=== PATIENT | female | born 1940 | race Two or more races ===

== ENCOUNTER 2022-11-05 10:38 | Inpatient (IN) | payer OTHER, MEDICAID ==
[~2022-11-05] VITALS: Ht 162.6 cm; Wt 57.9 kg
[2022-11-05 11:07] LABS: Basophils # (auto) 0.1 10 ^3/uL (0-0.2); Basophils % (auto) 0.7 % (0.0-2.0); Eosinophils # (auto) 0.1 10 ^3/uL (0-0.8); Hematocrit 39.4 % (36.0-46.0); Hemoglobin 13.8 g/dL (12.2-16.2); Lymphocytes # (auto) 1.8 10 ^3/uL (0.4-5.4); Lymphocytes % (auto) 24.4 % (10.0-50.0); Mean Corpuscular Hgb Conc. 34.9 g/dL (32.0-36.0); Monocytes # (auto) 0.3 10 ^3/uL (0-1.3); Monocytes % (auto) 3.4 % (0.0-12.0); Neutrophils # (auto) 5.3 10 ^3/uL (1.6-8.6); Neutrophils % (auto) 70.5 % (37.0-80.0); Nucleated Red Blood Cells % 0.7 %; Red Blood Cells 4.58 10^6/uL (4.0-5.20); Red Cell Distribution Width 14.5 % (11.8-14.3); White Blood Cell 7.5 10^3/uL (4.4-10.8)
[2022-11-05 11:24] LABS: Albumin 3.2 g/dL (3.4-5.0); Calcium 8.8 mg/dL (8.5-10.1)
[2022-11-05 11:28] LABS: Bilirubin, Total 0.7 mg/dL (0.2-1.0); Total Protein 6.9 g/dL (6.4-8.2)
[2022-11-05] MEDS ORDERED: IOHEXOL 300 MG/ML 100ML BOTTLE IJ ONE (11:51)
[2022-11-05 12:02] LABS: INR 0.97 (0.9-1.15)
[2022-11-05 13:54] LABS: Urine Bacteria MANY /hpf (None Seen); Urine Blood 3+ /uL (Negative); Urine Specific Gravity 1.025 (1.001-1.035); Urine WBC 369 /hpf (0 - 5); Urine WBC Clumps PRESENT /hpf (None Seen)
[2022-11-05] MEDS: cefTRIAXone 1GM/50ML D5W 50 ML IV ONE ×2 (14:44→14:46)
[2022-11-05] MEDS ORDERED: DEXTROSE (50%) 50ML SYRG IV PRN (22:15)
[2022-11-05] MEDS ORDERED: DOCUSATE SOD 100 MG CAP PO PRN (22:15)
[2022-11-05] MEDS ORDERED: ONDANSETRON HCL 4 MG/2 ML VIAL IV PRN (22:15)
[2022-11-05] MEDS ORDERED: HYDROcodone-ACET 5/325MG TAB PO PRN (22:15)
[2022-11-05] MEDS ORDERED: ACETAMINOPHEN 325 MG TAB PO PRN (22:15)
[2022-11-05] MEDS: SODIUM CHLORIDE 0.9% 1,000 ML IV SCH (22:30)
[2022-11-05] MEDS ORDERED: MORPHINE SULFATE INJ 2 MG/ml SYRG IV PRN (23:15)
[2022-11-05] MEDS ORDERED: NITROGLYCERIN 0.4 MG SL TAB SL PRN (23:15)
[2022-11-06] MEDS: hydrALAZINE HCL 20 MG/ML VL IV PRN (01:16)
[2022-11-06 02:19] VITALS: BP 126/59
[2022-11-06] MEDS ORDERED: MELATONIN 5 MG TAB PO ONE (04:15)
[2022-11-06] MEDS: PANTOPRAZOLE 40 MG/10 ML VIAL INJ IV SCH ×2 (04:23→22:18)
[2022-11-06 05:00] VITALS: BP 127/65
[2022-11-06] MEDS: ACCU-CHEK COMFORT CURVE STRIP VI SCH ×4 (06:01→22:35)
[2022-11-06] MEDS: InsuLIN REG 1unit/0.01ml Soln (100units/ml) SC SCH ×4 (06:04→22:34)
[2022-11-06 06:41] LABS: Basophils # (auto) 0.1 10 ^3/uL (0-0.2); Basophils % (auto) 0.8 % (0.0-2.0); Eosinophils # (auto) 0.1 10 ^3/uL (0-0.8); Hematocrit 37.9 % (36.0-46.0); Hemoglobin 13.2 g/dL (12.2-16.2); Lymphocytes # (auto) 1.9 10 ^3/uL (0.4-5.4); Lymphocytes % (auto) 22.2 % (10.0-50.0); Mean Corpuscular Hemoglobin 30.3 pg (28.0-32.0); Mean Corpuscular Hgb Conc. 34.9 g/dL (32.0-36.0); Mean Corpuscular Volume 86.6 fL (80.0-100.0); Monocytes # (auto) 0.4 10 ^3/uL (0-1.3); Monocytes % (auto) 4.5 % (0.0-12.0); Neutrophils % (auto) 71.5 % (37.0-80.0); Nucleated Red Blood Cells % 0.1 %; Red Blood Cells 4.38 10^6/uL (4.0-5.20); Red Cell Distribution Width 14.6 % (11.8-14.3); White Blood Cell 8.4 10^3/uL (4.4-10.8)
[2022-11-06 07:13] LABS: Calcium 8.5 mg/dL (8.5-10.1); Potassium 3.9 mmol/L (3.5-5.1)
[2022-11-06 07:19] LABS: Albumin 3.2 g/dL (3.4-5.0); BUN/Creatinine Ratio 30.4 (10.0-20.0); Bilirubin, Total 0.8 mg/dL (0.2-1.0); Total Protein 6.9 g/dL (6.4-8.2)
[2022-11-06] MEDS: cefTRIAXone 1GM/50ML D5W 50 ML IV SCH (08:51)
[2022-11-06 09:00] VITALS: BP 122/45
[2022-11-06] MEDS ORDERED: FAMOTIDINE (10MG/ML) 2ML VL IV SCH (10:00)
[2022-11-06 13:00] VITALS: BP 160/62
[2022-11-06] MEDS: SODIUM CHLORIDE 0.9% 1,000 ML IV SCH (14:24)
[2022-11-06 17:00] VITALS: BP 147/65
[2022-11-06] MEDS ORDERED: TEMAZEPAM 15 MG CAP PO ONE (20:45)
[2022-11-06 22:35] VITALS: BP 136/61
[2022-11-06] MEDS ORDERED: CLON0.5T3 PO (22:43)
[2022-11-06] MEDS ORDERED: SODI650T PO (22:43)
[2022-11-07 05:00] VITALS: BP 128/71
[2022-11-07] MEDS: ACCU-CHEK COMFORT CURVE STRIP VI SCH ×4 (06:10→21:54)
[2022-11-07] MEDS: InsuLIN REG 1unit/0.01ml Soln (100units/ml) SC SCH ×4 (06:13→21:54)
[2022-11-07] MEDS: SODIUM CHLORIDE 0.9% 1,000 ML IV SCH (07:35)
[2022-11-07] MEDS: PANTOPRAZOLE 40 MG/10 ML VIAL INJ IV SCH (08:08)
[2022-11-07] MEDS: cefTRIAXone 1GM/50ML D5W 50 ML IV SCH (08:08)
[2022-11-07 08:13] VITALS: BP 118/58
[2022-11-07 17:00] VITALS: BP 138/54
[2022-11-07] MEDS: hydrALAZINE HCL 20 MG/ML VL IV PRN (17:51)
[2022-11-07] MEDS: INSULIN LANTUS (GLARGINE) 1 /0.01ml (100units/ml) SC SCH (21:54)
[2022-11-07 22:00] VITALS: BP 182/73
[2022-11-08 05:00] VITALS: BP 106/76
[2022-11-08] MEDS: SODIUM CHLORIDE 0.9% 1,000 ML IV SCH ×2 (06:02→10:15)
[2022-11-08] MEDS: ACCU-CHEK COMFORT CURVE STRIP VI SCH ×4 (06:03→21:27)
[2022-11-08] MEDS: INSULIN LANTUS (GLARGINE) 1 /0.01ml (100units/ml) SC SCH ×2 (06:05→22:09)
[2022-11-08] MEDS: InsuLIN REG 1unit/0.01ml Soln (100units/ml) SC SCH ×4 (06:05→22:09)
[2022-11-08 08:54] VITALS: BP 173/62
[2022-11-08] MEDS: cefTRIAXone 1GM/50ML D5W 50 ML IV SCH (10:07)
[2022-11-08] MEDS: hydrALAZINE HCL 20 MG/ML VL IV PRN (10:13)
[2022-11-08] MEDS ORDERED: clonazePAM 0.5 MG TAB PO PRN (12:00)
[2022-11-08 12:36] VITALS: BP 149/55
[2022-11-08 17:27] VITALS: BP 148/85
[2022-11-08] MEDS: Juven Orange Powder PACKET 27.5gm PO SCH (18:21)
[2022-11-08 22:00] VITALS: BP 145/119
[2022-11-09 05:00] VITALS: BP 143/53
[2022-11-09] MEDS: InsuLIN REG 1unit/0.01ml Soln (100units/ml) SC SCH ×3 (07:00→18:18)
[2022-11-09] MEDS: ACCU-CHEK COMFORT CURVE STRIP VI SCH ×3 (07:00→16:22)
[2022-11-09] MEDS: INSULIN LANTUS (GLARGINE) 1 /0.01ml (100units/ml) SC SCH (07:04)
[2022-11-09 09:00] VITALS: BP 112/54
[2022-11-09] MEDS: SODIUM CHLORIDE 0.9% 1,000 ML IV SCH (09:35)
[2022-11-09] MEDS: cefTRIAXone 1GM/50ML D5W 50 ML IV SCH (09:47)
[2022-11-09] MEDS: Juven Orange Powder PACKET 27.5gm PO SCH ×2 (09:48→18:48)
[2022-11-09] MEDS ORDERED: CEPH-510 PO (10:26)
[2022-11-09 13:00] VITALS: BP 116/74
[2022-11-09 16:41] VITALS: BP 123/53
== END 2022-11-09 18:53 | disposition home or self-care (01) | DRG 760 ==
LOC: ER 10:38 → TELE 23:11 → TELE-WESTW 11-06 02:21
PROVIDERS: ADMIT Nurse Practitioner Family; ATTEND Internal Medicine
DX: N89.9 Noninflammatory disorder of vagina, unspecified (principal); N39.0 Urinary tract infection, site not specified; N93.9 Abnormal uterine and vaginal bleeding, unspecified; I16.0 Hypertensive urgency; E11.65 Type 2 diabetes mellitus with hyperglycemia; Z20.822 Contact with and (suspected) exposure to COVID-19; G30.9 Alzheimer's disease, unspecified; F02.80 Dementia in other diseases classified elsewhere, unspecified severity, without behavioral disturbance, psychotic disturbance, mood disturbance, and anxiety; E11.22 Type 2 diabetes mellitus with diabetic chronic kidney disease; N18.9 Chronic kidney disease, unspecified; Z90.710 Acquired absence of both cervix and uterus
CPT/HCPCS: 36415; 74177; 76856; 80053; 81001; 82962; 84484; 85025; 85610; 86850; 86900; 86901; 87086; 87426; 93005; 96365; 96375; C9113; G0378; J0696; J1815; J2405

== ENCOUNTER 2023-01-14 11:54 | Inpatient (IN) | payer OTHER, MEDICAID ==
[~2023-01-14] VITALS: Ht 162.6 cm; Wt 62.0 kg
[~2023-01-14 11:54] MED LIST: CEPH-510 PO; CLON0.5T3 PO; SODI650T PO
[2023-01-14] MEDS ORDERED: ACETAMINOPHEN 500 MG TAB PO ONE (12:15)
[2023-01-14] MEDS ORDERED: AZITHROMYCIN 500MG/ 250ML 250 ML IV ONE (12:15)
[2023-01-14] MEDS ORDERED: cefTRIAXone 1GM/50ML D5W 50 ML IV ONE (12:15)
[2023-01-14 12:43] LABS: Basophils # (auto) 0.2 10 ^3/uL (0-0.2); Eosinophils # (auto) 0 10 ^3/uL (0-0.8); Hematocrit 39.7 % (36.0-46.0); Hemoglobin 13.3 g/dL (12.2-16.2); Lymphocytes # (auto) 0.7 10 ^3/uL (0.4-5.4); Lymphocytes % (auto) 4.1 % (10.0-50.0); Mean Corpuscular Hemoglobin 28.7 pg (28.0-32.0); Mean Corpuscular Hgb Conc. 33.5 g/dL (32.0-36.0); Mean Corpuscular Volume 85.9 fL (80.0-100.0); Monocytes # (auto) 0.3 10 ^3/uL (0-1.3); Monocytes % (auto) 1.9 % (0.0-12.0); Neutrophils # (auto) 15.3 10 ^3/uL (1.6-8.6); Red Blood Cells 4.63 10^6/uL (4.0-5.20); Red Cell Distribution Width 14.7 % (11.8-14.3); White Blood Cell 16.4 10^3/uL (4.4-10.8)
[2023-01-14 13:00] LABS: Albumin 3.1 g/dL (3.4-5.0); Calcium 8.5 mg/dL (8.5-10.1); Magnesium 2.1 mg/dL (1.6-2.6); Potassium 4.7 mmol/L (3.5-5.1)
[2023-01-14 13:03] LABS: INR 1.05 (0.9-1.15); Lactic Acid w/Reflex 6.4 mmol/L (0.4-2.0); Partial Thromboplastin Time 27.7 SEC (24.5-34.5)
[2023-01-14 13:04] LABS: BUN/Creatinine Ratio 20.7 (10.0-20.0); Bilirubin, Total 1.4 mg/dL (0.2-1.0); Total Protein 7.1 g/dL (6.4-8.2)
[2023-01-14] MEDS ORDERED: IPRATROPIUM BROM 0.5 MG/2.5ML INH SOL NEB PRN (14:15)
[2023-01-14] MEDS ORDERED: NITROGLYCERIN 0.4 MG SL TAB SL PRN (14:15)
[2023-01-14] MEDS ORDERED: DEXTROSE (50%) 50ML SYRG IV PRN (14:15)
[2023-01-14] MEDS ORDERED: ACETAMINOPHEN 325 MG TAB PO PRN (14:15)
[2023-01-14] MEDS ORDERED: ALBUTEROL SULF 2.5 MG/0.5ML(0.5%) NEB SOLN NEB PRN (14:15)
[2023-01-14] MEDS: SODIUM CHLORIDE 0.9% 1,000 ML IV SCH (14:40)
[2023-01-14] MEDS: ASPirin 81 mg TAB PO SCH (14:46)
[2023-01-14 15:27] LABS: Magnesium 1.9 mg/dL (1.6-2.6)
[2023-01-14 16:35] VITALS: PULSE 87; RESP 23; O2SAT 94
[2023-01-14 18:10] VITALS: O2SAT 94
[2023-01-14] MEDS: InsuLIN REG 1unit/0.01ml Soln (100units/ml) SC SCH ×2 (18:12→23:50)
[2023-01-14] MEDS: ACCU-CHEK COMFORT CURVE STRIP VI SCH (18:13)
[2023-01-14 19:30] VITALS: BP 109/46; PULSE 65; RESP 16; TEMP 99.1; O2SAT 96
[2023-01-14 19:39] LABS: COVID19 ANTIGEN SOFIA FIA NEGATIVE (NEGATIVE)
[2023-01-14 19:40] VITALS: PULSE 88; RESP 17; O2SAT 97
[2023-01-14] MEDS ORDERED: VANCOMYCIN PER PHARMACY 0 MG IV SCH (20:45)
[2023-01-14] MEDS ORDERED: SODIUM CHLORIDE 0.9% 1,000 ML IV ONE (20:45)
[2023-01-14] MEDS ORDERED: VANCOMYCIN 1GM/250ML 250 ML IV ONE (21:00)
[2023-01-14] MEDS: MORPHINE SULFATE 4 MG/ML SYR/VIAL IV PRN (21:41)
[2023-01-14] MEDS ORDERED: ENOXAPARIN SOD 60 MG/0.6 ML SYRINGE SC SCH (22:00)
[2023-01-14] MEDS ORDERED: ATORVASTATIN 20 MG TAB PO SCH (22:00)
[2023-01-14] MEDS ORDERED: LORazepam 2MG/ML-1ML VIAL IV PRN (23:15)
[2023-01-14] MEDS: ONDANSETRON HCL 4 MG/2 ML VIAL IV PRN (23:51)
[2023-01-15] VITALS (12 sets, daily range): BP systolic 101–134; BP diastolic 44–63; PULSE 65–96; RESP 18–22; TEMP 96.2–98.7; O2SAT 91–97
[2023-01-15] MEDS: SODIUM CHLORIDE 0.9% 1,000 ML IV SCH ×3 (00:37→21:21)
[2023-01-15] MEDS: InsuLIN REG 1unit/0.01ml Soln (100units/ml) SC SCH ×3 (05:50→17:47)
[2023-01-15] MEDS: ACCU-CHEK COMFORT CURVE STRIP VI SCH ×4 (05:56→17:47)
[2023-01-15] MEDS: DOCUSATE SOD 100 MG CAP PO SCH (09:25)
[2023-01-15] MEDS: ASPirin 81 mg TAB PO SCH (09:26)
[2023-01-15] MEDS ORDERED: VANCOMYCIN 500 MG in D5W 5% 100 ML IV ONE (10:00)
[2023-01-15] MEDS ORDERED: PIPERACILLIN-TAZOB 3.375GM 100 ML IV STA (10:25)
[2023-01-15 10:57] LABS: Basophils # (auto) 0.1 10 ^3/uL (0-0.2); Basophils % (auto) 0.3 % (0.0-2.0); Eosinophils # (auto) 0 10 ^3/uL (0-0.8); Eosinophils % (auto) 0.2 % (0.0-7.0); Hemoglobin 10.7 g/dL (12.2-16.2); Lymphocytes # (auto) 2.1 10 ^3/uL (0.4-5.4); Lymphocytes % (auto) 12.5 % (10.0-50.0); Mean Corpuscular Hemoglobin 28.4 pg (28.0-32.0); Mean Corpuscular Hgb Conc. 32.4 g/dL (32.0-36.0); Mean Corpuscular Volume 87.6 fL (80.0-100.0); Monocytes # (auto) 0.9 10 ^3/uL (0-1.3); Monocytes % (auto) 5.4 % (0.0-12.0); Neutrophils # (auto) 13.6 10 ^3/uL (1.6-8.6); Neutrophils % (auto) 81.6 % (37.0-80.0); Red Blood Cells 3.77 10^6/uL (4.0-5.20); Red Cell Distribution Width 15.3 % (11.8-14.3); White Blood Cell 16.7 10^3/uL (4.4-10.8)
[2023-01-15 11:32] LABS: Potassium 4.1 mmol/L (3.5-5.1)
[2023-01-15 11:42] LABS: Albumin 2.4 g/dL (3.4-5.0); BUN/Creatinine Ratio 32.6 (10.0-20.0); Bilirubin, Total 0.9 mg/dL (0.2-1.0); Calcium 7.3 mg/dL (8.5-10.1); Total Protein 5.5 g/dL (6.4-8.2)
[2023-01-15 12:30] LABS: Lactic Acid w/Reflex 2.6 mmol/L (0.4-2.0)
[2023-01-15] MEDS: PIPERACILLIN-TAZOB 3.375GM 100 ML IV SCH ×2 (14:10→21:22)
[2023-01-15 14:31] LABS: Anisocytosis Slight; Hypochromia Slight; Platelet Estimate Adequate
[2023-01-16] VITALS (8 sets, daily range): BP systolic 127–162; BP diastolic 47–71; PULSE 70–86; RESP 18–22; TEMP 95.9–98.6; O2SAT 93–96
[2023-01-16] MEDS: InsuLIN REG 1unit/0.01ml Soln (100units/ml) SC SCH ×4 (00:12→17:38)
[2023-01-16] MEDS: ACCU-CHEK COMFORT CURVE STRIP VI SCH ×4 (00:13→17:39)
[2023-01-16] MEDS: PIPERACILLIN-TAZOB 3.375GM 100 ML IV SCH ×3 (06:28→21:23)
[2023-01-16] MEDS: SODIUM CHLORIDE 0.9% 1,000 ML IV SCH ×2 (06:29→09:30)
[2023-01-16 07:02] LABS: Basophils # (auto) 0 10 ^3/uL (0-0.2); Basophils % (auto) 0.3 % (0.0-2.0); Eosinophils # (auto) 0.1 10 ^3/uL (0-0.8); Eosinophils % (auto) 1.4 % (0.0-7.0); Hematocrit 30.2 % (36.0-46.0); Hemoglobin 10.2 g/dL (12.2-16.2); Lymphocytes % (auto) 20.4 % (10.0-50.0); Mean Corpuscular Hemoglobin 29.3 pg (28.0-32.0); Mean Corpuscular Hgb Conc. 33.9 g/dL (32.0-36.0); Mean Corpuscular Volume 86.6 fL (80.0-100.0); Monocytes # (auto) 0.4 10 ^3/uL (0-1.3); Neutrophils # (auto) 7.4 10 ^3/uL (1.6-8.6); Neutrophils % (auto) 73.9 % (37.0-80.0); Nucleated Red Blood Cells % 0.1 %; Red Blood Cells 3.49 10^6/uL (4.0-5.20); Red Cell Distribution Width 15.3 % (11.8-14.3)
[2023-01-16 07:22] LABS: Magnesium 1.9 mg/dL (1.6-2.6); Potassium 3.5 mmol/L (3.5-5.1)
[2023-01-16 07:29] LABS: Albumin 2.2 g/dL (3.4-5.0); BUN/Creatinine Ratio 31.4 (10.0-20.0); Bilirubin, Total 0.6 mg/dL (0.2-1.0); Calcium 7.1 mg/dL (8.5-10.1); Total Protein 5.8 g/dL (6.4-8.2)
[2023-01-16] MEDS: PANTOPRAZOLE 40 MG TAB PO SCH (09:56)
[2023-01-16] MEDS: DOCUSATE SOD 100 MG CAP PO SCH (09:56)
[2023-01-16] MEDS ORDERED: ENOXAPARIN SOD 60 MG/0.6 ML SYRINGE SC SCH (10:00)
[2023-01-16] MEDS ORDERED: PANTOPRAZOLE 40 MG TAB PO SCH (10:00)
[2023-01-16 10:49] LABS: Platelet Estimate Adequate
[2023-01-16 10:50] LABS: Anisocytosis Slight; Hypochromia Slight
[2023-01-16] MEDS ORDERED: ERGOCALCIFEROL 50,000 UNIT(1.25MG) CAP PO SCH (11:15)
[2023-01-16] MEDS: ATORVASTATIN 20 MG TAB PO SCH (21:24)
[2023-01-16] MEDS: MORPHINE SULFATE 4 MG/ML SYR/VIAL IV PRN (21:52)
[2023-01-17] VITALS (10 sets, daily range): BP systolic 151–191; BP diastolic 63–102; PULSE 65–74; RESP 16–20; TEMP 97.3–98.2; O2SAT 93–100
[2023-01-17 06:00] LABS: Basophils # (auto) 0.1 10 ^3/uL (0-0.2); Basophils % (auto) 0.7 % (0.0-2.0); Eosinophils # (auto) 0.2 10 ^3/uL (0-0.8); Eosinophils % (auto) 2.4 % (0.0-7.0); Hematocrit 30.3 % (36.0-46.0); Hemoglobin 10.2 g/dL (12.2-16.2); Lymphocytes # (auto) 1.6 10 ^3/uL (0.4-5.4); Lymphocytes % (auto) 22.4 % (10.0-50.0); Mean Corpuscular Hemoglobin 29.1 pg (28.0-32.0); Mean Corpuscular Hgb Conc. 33.6 g/dL (32.0-36.0); Mean Corpuscular Volume 86.5 fL (80.0-100.0); Monocytes # (auto) 0.3 10 ^3/uL (0-1.3); Monocytes % (auto) 4.7 % (0.0-12.0); Neutrophils # (auto) 4.9 10 ^3/uL (1.6-8.6); Neutrophils % (auto) 69.8 % (37.0-80.0); Red Cell Distribution Width 15.3 % (11.8-14.3); White Blood Cell 7.1 10^3/uL (4.4-10.8)
[2023-01-17] MEDS: InsuLIN REG 1unit/0.01ml Soln (100units/ml) SC SCH ×5 (06:12→23:09)
[2023-01-17] MEDS: PIPERACILLIN-TAZOB 3.375GM 100 ML IV SCH ×2 (06:13→14:46)
[2023-01-17] MEDS: SODIUM CHLORIDE 0.9% 1,000 ML IV SCH (06:14)
[2023-01-17] MEDS: ACCU-CHEK COMFORT CURVE STRIP VI SCH ×5 (06:14→23:15)
[2023-01-17 06:23] LABS: Albumin 2.2 g/dL (3.4-5.0); Calcium 7.7 mg/dL (8.5-10.1); Potassium 4.1 mmol/L (3.5-5.1)
[2023-01-17 06:26] LABS: BUN/Creatinine Ratio 25.8 (10.0-20.0); Bilirubin, Total 0.6 mg/dL (0.2-1.0); Total Protein 5.8 g/dL (6.4-8.2)
[2023-01-17 07:02] LABS: Large Platelets FEW; Platelet Estimate Decreased
[2023-01-17] MEDS ORDERED: ENALAPRIL MALEATE 2.5 MG TAB PO SCH (10:00)
[2023-01-17] MEDS ORDERED: ENOXAPARIN SOD 40 MG/0.4 ML SYRINGE SC SCH (10:00)
[2023-01-17] MEDS: GEMFIBROZIL 600 MG TAB PO SCH (10:24)
[2023-01-17] MEDS: DOCUSATE SOD 100 MG CAP PO SCH (10:24)
[2023-01-17] MEDS: PANTOPRAZOLE 40 MG TAB PO SCH (10:24)
[2023-01-17] MEDS: ENALAPRIL MALEATE 2.5 MG TAB PO SCH ×2 (10:24→21:22)
[2023-01-17 11:25] LABS: Creatinine, Urine 74 mg/dL (30.0-125.0); Sodium Urine 95 mmol/L (40-220)
[2023-01-17 11:26] LABS: Urine Bacteria MOD /hpf (None Seen); Urine Blood TRACE /uL (Negative); Urine Budding Yeast MANY /hpf (None Seen); Urine Clarity HAZY (Clear); Urine Color Yellow (Yellow); Urine Protein, UAD 1+ (Negative); Urine Specific Gravity 1.021 (1.001-1.035); Urine Urobilinogen Normal (Negative); Urine WBC 448 /hpf (0 - 5); Urine WBC Clumps PRESENT /hpf (None Seen); Urine pH 5.5 (5.0-8.0)
[2023-01-17 11:27] LABS: Amphetamine Screen, Urine NEGATIVE (NEGATIVE); Barbiturate Scree,Urine NEGATIVE (NEGATIVE); Benzodiazephine Screen, Urine NEGATIVE (NEGATIVE); Cannabinoid Screen, Urine NEGATIVE (NEGATIVE); Cocaine Screen, Urine NEGATIVE (NEGATIVE); Opiate Scree,Urine NEGATIVE (NEGATIVE); Phencyclidine Screen, Urine NEGATIVE (NEGATIVE)
[2023-01-17] MEDS ORDERED: ERTAPENEM SOD INJ 1 GM in SODIUM CHL 0.9% 50 ML IV ONE (16:15)
[2023-01-17] MEDS: ERTAPENEM SOD INJ 1 GM in SODIUM CHL 0.9% 50 ML IV SCH (18:38)
[2023-01-17] MEDS: ATORVASTATIN 20 MG TAB PO SCH (21:22)
[2023-01-17] MEDS ORDERED: TEMAZEPAM 15 MG CAP PO ONE (22:45)
[2023-01-18] VITALS (8 sets, daily range): BP systolic 102–164; BP diastolic 47–83; PULSE 66–81; RESP 16–20; TEMP 97.4–98.6; O2SAT 91–98
[2023-01-18] MEDS: SODIUM CHLORIDE 0.9% 1,000 ML IV SCH ×2 (01:50→21:22)
[2023-01-18] MEDS: InsuLIN REG 1unit/0.01ml Soln (100units/ml) SC SCH ×3 (06:33→17:35)
[2023-01-18] MEDS: ACCU-CHEK COMFORT CURVE STRIP VI SCH ×3 (06:38→17:33)
[2023-01-18 06:45] LABS: Basophils # (auto) 0 10 ^3/uL (0-0.2); Basophils % (auto) 0.6 % (0.0-2.0); Eosinophils # (auto) 0.2 10 ^3/uL (0-0.8); Eosinophils % (auto) 2.5 % (0.0-7.0); Hematocrit 31.1 % (36.0-46.0); Hemoglobin 10.6 g/dL (12.2-16.2); Lymphocytes # (auto) 1.4 10 ^3/uL (0.4-5.4); Lymphocytes % (auto) 22.8 % (10.0-50.0); Mean Corpuscular Hemoglobin 29.2 pg (28.0-32.0); Mean Corpuscular Hgb Conc. 34.1 g/dL (32.0-36.0); Mean Corpuscular Volume 85.7 fL (80.0-100.0); Monocytes # (auto) 0.4 10 ^3/uL (0-1.3); Monocytes % (auto) 5.8 % (0.0-12.0); Neutrophils # (auto) 4.3 10 ^3/uL (1.6-8.6); Neutrophils % (auto) 68.3 % (37.0-80.0); Nucleated Red Blood Cells % 0.1 %; Red Blood Cells 3.63 10^6/uL (4.0-5.20); Red Cell Distribution Width 14.7 % (11.8-14.3); White Blood Cell 6.2 10^3/uL (4.4-10.8)
[2023-01-18 06:50] LABS: Albumin 2.1 g/dL (3.4-5.0); Calcium 8.1 mg/dL (8.5-10.1); Potassium 4.3 mmol/L (3.5-5.1)
[2023-01-18 06:57] LABS: BUN/Creatinine Ratio 20.8 (10.0-20.0); Bilirubin, Total 0.5 mg/dL (0.2-1.0); Total Protein 5.8 g/dL (6.4-8.2)
[2023-01-18] MEDS: GEMFIBROZIL 600 MG TAB PO SCH (09:18)
[2023-01-18] MEDS: amLODIPine BESYLATE 5 MG TAB PO SCH ×2 (09:18→09:24)
[2023-01-18] MEDS: ONDANSETRON HCL 4 MG/2 ML VIAL IV PRN (09:18)
[2023-01-18] MEDS: DOCUSATE SOD 100 MG CAP PO SCH (09:19)
[2023-01-18] MEDS: CYANOCOBALAMIN 500 MCG TAB PO SCH (09:19)
[2023-01-18] MEDS: ENALAPRIL MALEATE 2.5 MG TAB PO SCH ×2 (09:19→21:14)
[2023-01-18] MEDS: ERTAPENEM SOD INJ 1 GM in SODIUM CHL 0.9% 50 ML IV SCH (09:37)
[2023-01-18] MEDS ORDERED: amLODIPine BESYLATE 5 MG TAB PO SCH (10:00)
[2023-01-18] MEDS: MORPHINE SULFATE 4 MG/ML SYR/VIAL IV PRN ×2 (20:12→20:25)
[2023-01-18] MEDS: ATORVASTATIN 20 MG TAB PO SCH (21:12)
[2023-01-19] VITALS (11 sets, daily range): BP systolic 138–208; BP diastolic 67–87; PULSE 64–89; RESP 16–20; TEMP 97.4–98.5; O2SAT 92–98
[2023-01-19] MEDS: ACCU-CHEK COMFORT CURVE STRIP VI SCH ×6 (00:17→23:32)
[2023-01-19] MEDS: InsuLIN REG 1unit/0.01ml Soln (100units/ml) SC SCH ×6 (00:20→23:40)
[2023-01-19] MEDS: SODIUM CHLORIDE 0.9% 1,000 ML IV SCH (04:00)
[2023-01-19 06:30] LABS: BUN/Creatinine Ratio 26.7 (10.0-20.0); Calcium 8.5 mg/dL (8.5-10.1); Potassium 3.8 mmol/L (3.5-5.1)
[2023-01-19 07:13] LABS: Hematocrit 31.5 % (36.0-46.0); Hemoglobin 10.5 g/dL (12.2-16.2); Mean Corpuscular Hemoglobin 28.4 pg (28.0-32.0); Mean Corpuscular Hgb Conc. 33.2 g/dL (32.0-36.0); Mean Corpuscular Volume 85.6 fL (80.0-100.0); Red Blood Cells 3.68 10^6/uL (4.0-5.20); Red Cell Distribution Width 15.2 % (11.8-14.3); White Blood Cell 6.3 10^3/uL (4.4-10.8)
[2023-01-19 07:19] LABS: Basophils % (manual) 0 (0.0-2.0); Blast Cells 0; Metamyelocytes % 0; Myelocytes % 0; Promyelocytes % 0; Reactive Lymphocytes 0
[2023-01-19] MEDS ORDERED: ASPirin 325 MG TAB PO ONE (07:30)
[2023-01-19] MEDS: FLUCONAZOLE 200MG/100ML 100 ML IV SCH (09:59)
[2023-01-19] MEDS: amLODIPine BESYLATE 5 MG TAB PO SCH (10:00)
[2023-01-19] MEDS: ERTAPENEM SOD INJ 1 GM in SODIUM CHL 0.9% 50 ML IV SCH (10:00)
[2023-01-19] MEDS: DOCUSATE SOD 100 MG CAP PO SCH (10:00)
[2023-01-19] MEDS: GEMFIBROZIL 600 MG TAB PO SCH (10:00)
[2023-01-19] MEDS ORDERED: ENOXAPARIN SOD 40 MG/0.4 ML SYRINGE SC SCH (10:00)
[2023-01-19] MEDS: VALSARTAN 80 MG TAB PO SCH (10:00)
[2023-01-19] MEDS: CYANOCOBALAMIN 500 MCG TAB PO SCH (10:02)
[2023-01-19 12:31] LABS: Band Neutrophils % (manual) 4; Eosinophils % (manual) 3 (0-7); Lymphocytes % (manual) 30 (10.0-50.0); Monocytes % (manual) 8 (0-12)
[2023-01-19 12:33] LABS: Anisocytosis Slight
[2023-01-19 12:34] LABS: Platelet Estimate Decreased
[2023-01-19] MEDS: hydrALAZINE HCL 20 MG/ML VL IV PRN (17:37)
[2023-01-19] MEDS ORDERED: CARVEDILOL 3.125 MG TAB PO SCH (22:00)
[2023-01-19] MEDS ORDERED: ATORVASTATIN 20 MG TAB PO SCH (22:00)
[2023-01-20] MEDS: hydrALAZINE HCL 20 MG/ML VL IV PRN (04:32)
[2023-01-20 05:00] VITALS: BP 161/72; PULSE 64; RESP 18; TEMP 97.8; O2SAT 96
[2023-01-20 05:08] LABS: Hematocrit 35.4 % (36.0-46.0); Hemoglobin 11.7 g/dL (12.2-16.2); Mean Corpuscular Hemoglobin 28.6 pg (28.0-32.0); Mean Corpuscular Hgb Conc. 33.1 g/dL (32.0-36.0); Mean Corpuscular Volume 86.3 fL (80.0-100.0); Red Cell Distribution Width 14.9 % (11.8-14.3); White Blood Cell 9.2 10^3/uL (4.4-10.8)
[2023-01-20 05:10] LABS: Band Neutrophils % (manual) 0; Basophils % (manual) 0 (0.0-2.0); Blast Cells 0; Metamyelocytes % 0; Promyelocytes % 0; Reactive Lymphocytes 0
[2023-01-20 05:18] LABS: Albumin 2.5 g/dL (3.4-5.0); Magnesium 2.2 mg/dL (1.6-2.6); Potassium 3.8 mmol/L (3.5-5.1)
[2023-01-20 05:22] LABS: BUN/Creatinine Ratio 21.5 (10.0-20.0); Bilirubin, Total 0.6 mg/dL (0.2-1.0); Total Protein 6.4 g/dL (6.4-8.2)
[2023-01-20 06:39] VITALS: O2SAT 96
[2023-01-20] MEDS: ACCU-CHEK COMFORT CURVE STRIP VI SCH ×2 (06:43→12:00)
[2023-01-20] MEDS: InsuLIN REG 1unit/0.01ml Soln (100units/ml) SC SCH ×2 (06:46→12:00)
[2023-01-20 06:54] LABS: Eosinophils % (manual) 2 (0-7); Lymphocytes % (manual) 29 (10.0-50.0); Monocytes % (manual) 4 (0-12); Myelocytes % 1
[2023-01-20 06:55] LABS: Platelet Estimate Adequate
[2023-01-20 08:00] VITALS: PULSE 67; PULSE 76; RESP 18
[2023-01-20] MEDS: ERTAPENEM SOD INJ 1 GM in SODIUM CHL 0.9% 50 ML IV SCH (08:00)
[2023-01-20] MEDS: DOCUSATE SOD 100 MG CAP PO SCH (08:19)
[2023-01-20] MEDS: CYANOCOBALAMIN 500 MCG TAB PO SCH (08:20)
[2023-01-20] MEDS: amLODIPine BESYLATE 5 MG TAB PO SCH (08:20)
[2023-01-20] MEDS: VALSARTAN 80 MG TAB PO SCH (08:22)
[2023-01-20] MEDS: GEMFIBROZIL 600 MG TAB PO SCH (08:22)
[2023-01-20 09:00] VITALS: BP 172/69; PULSE 76; RESP 19; TEMP 98.3; O2SAT 94
[2023-01-20 10:00] VITALS: PULSE 67
[2023-01-20] MEDS ORDERED: ASPirin 81 mg TAB PO SCH (10:00)
[2023-01-20] MEDS ORDERED: CARVEDILOL 3.125 MG TAB PO SCH (10:00)
[2023-01-20 10:39] VITALS: BP 133/61; PULSE 66
[2023-01-20] MEDS ORDERED: ERGO1CAP23 PO (10:50)
[2023-01-20] MEDS ORDERED: CYAN500T3 PO (10:50)
[2023-01-20] MEDS ORDERED: FLUC200T PO (10:51)
[2023-01-20] MEDS: FLUCONAZOLE 200MG/100ML 100 ML IV SCH (11:00)
== END 2023-01-20 12:25 | disposition home or self-care (01) | DRG 871 ==
LOC: ER 11:54 → TELE 14:04 → TELE-EAST 23:18 → EAST 01-18 02:38 → TELE-EAST 01-18 22:57 → TELE-CENTR 01-18 23:34
PROVIDERS: ADMIT Internal Medicine; ATTEND Internal Medicine
PROC: 05H933Z Insertion of Infusion Device into Right Brachial Vein, Percutaneous Approach (ICD-10-PCS; principal; 2023-01-19)
PROC: B54MZZA Ultrasonography of Right Upper Extremity Veins, Guidance (ICD-10-PCS; 2023-01-19)
DX: A41.50 Gram-negative sepsis, unspecified (principal); E43 Unspecified severe protein-calorie malnutrition; I21.A1 Myocardial infarction type 2; N17.9 Acute kidney failure, unspecified; J44.1 Chronic obstructive pulmonary disease with (acute) exacerbation; N39.0 Urinary tract infection, site not specified; Z16.12 Extended spectrum beta lactamase (ESBL) resistance; E11.65 Type 2 diabetes mellitus with hyperglycemia; Z20.822 Contact with and (suspected) exposure to COVID-19; N18.9 Chronic kidney disease, unspecified; R74.01 Elevation of levels of liver transaminase levels; F03.90 Unspecified dementia, unspecified severity, without behavioral disturbance, psychotic disturbance, mood disturbance, and anxiety; N94.89 Other specified conditions associated with female genital organs and menstrual cycle; Z68.23 Body mass index [BMI] 23.0-23.9, adult; D64.9 Anemia, unspecified; B96.20 Unspecified Escherichia coli [E. coli] as the cause of diseases classified elsewhere; R19.09 Other intra-abdominal and pelvic swelling, mass and lump; N94.9 Unspecified condition associated with female genital organs and menstrual cycle; D69.6 Thrombocytopenia, unspecified; Z87.891 Personal history of nicotine dependence; Z90.710 Acquired absence of both cervix and uterus; Z86.73 Personal history of transient ischemic attack (TIA), and cerebral infarction without residual deficits
CPT/HCPCS: 36415; 71045; 74176; 78582; 80048; 80053; 80061; 80202; 80307; 80320; 81001; 82306; 82570; 82607; 82962; 83036; 83605; 83690; 83735; 83880; 84100; 84300; 84443; 84484; 85007; 85025; 85027; 85379; 85610; 85730; 87040; 87077; 87086; 87186; 87426; 93005; 93306; 96365; 96366; 96367; 96372; 97110; 97163; G0378; J0696; J1335; J1450; J1815; J2405; J2543; J7060

== ENCOUNTER 2023-06-02 15:33 | Inpatient (IN) | payer OTHER, MEDICAID ==
[~2023-06-02] VITALS: Ht 162.6 cm; Wt 59.9 kg
[~2023-06-02 15:33] MED LIST changes: +CYAN500T3 PO; +ERGO1CAP23 PO; +FLUC200T PO
[2023-06-02] MEDS ORDERED: ASPirin 81 mg TAB PO ONE (16:00)
[2023-06-02] MEDS ORDERED: ONDANSETRON ODT 4 MG TAB PO ONE (16:00)
[2023-06-02 16:20] LABS: Basophils # (auto) 0 10 ^3/uL (0-0.2); Basophils % (auto) 0.2 % (0.0-2.0); Eosinophils # (auto) 0 10 ^3/uL (0-0.8); Eosinophils % (auto) 0.1 % (0.0-7.0); Hematocrit 40.1 % (36.0-46.0); Hemoglobin 13.4 g/dL (12.2-16.2); Lymphocytes # (auto) 0.7 10 ^3/uL (0.4-5.4); Lymphocytes % (auto) 4.8 % (10.0-50.0); Mean Corpuscular Hemoglobin 28.4 pg (28.0-32.0); Mean Corpuscular Hgb Conc. 33.3 g/dL (32.0-36.0); Mean Corpuscular Volume 85.1 fL (80.0-100.0); Monocytes # (auto) 0.3 10 ^3/uL (0-1.3); Monocytes % (auto) 2.1 % (0.0-12.0); Neutrophils # (auto) 13.9 10 ^3/uL (1.6-8.6); Neutrophils % (auto) 92.8 % (37.0-80.0); Nucleated Red Blood Cells % 0.1 %; Red Blood Cells 4.72 10^6/uL (4.0-5.20); Red Cell Distribution Width 14.7 % (11.8-14.3)
[2023-06-02 16:36] LABS: Alanine Aminotransferase 97 U/L (7-40); Albumin 3.8 g/dL (3.2-4.8); Alkaline Phosphatase 133 U/L (46-116); Anion Gap 11 (5-15); Aspartate Aminotransferase 152 U/L (13-40); BUN/Creatinine Ratio 27.7 (10.0-20.0); Blood Urea Nitrogen 26 mg/dL (9-23); Calcium 9.1 mg/dL (8.7-10.4); Carbon Dioxide 21 mmol/L (20-30); Chloride 102 mmol/L (98-107); Glucose 365 mg/dL (74-106); Magnesium 1.6 mg/dL (1.6-2.6); Potassium 4.3 mmol/L (3.5-5.1); Sodium 134 mmol/L (136-145)
[2023-06-02 16:37] LABS: Total Protein 6.4 g/dL (5.7-8.2)
[2023-06-02 16:39] LABS: INR 1.04 (0.9-1.15); Partial Thromboplastin Time 28.1 SEC (24.5-34.5); Prothrombin Time 10.9 sec (9.3-11.8)
[2023-06-02] MEDS ORDERED: SODIUM CHLORIDE 0.9% 1,000 ML IV ONE (17:15)
[2023-06-02 17:18] LABS: Urine Amorphous Crystal FEW /hpf (None Seen); Urine Bacteria MANY /hpf (None Seen); Urine Blood 2+ /uL (Negative); Urine Clarity CLOUDY (Clear); Urine Color Yellow (Yellow); Urine Protein, UAD 3+ (Negative); Urine Specific Gravity 1.018 (1.001-1.035); Urine WBC 150 /hpf (0 - 5); Urine WBC Clumps PRESENT /hpf (None Seen)
[2023-06-02] MEDS ORDERED: PIPERACILLIN-TAZO 4.5GM 100 ML IV ONE (18:30)
[2023-06-02] MEDS ORDERED: SODIUM CHLORIDE 0.9% 1,500 ML IV ONE (18:45)
[2023-06-02] MEDS ORDERED: MORPHINE SULFATE INJ 2 MG/ml SYRG IV ONE (18:45)
[2023-06-02 19:40] VITALS: PULSE 95; RESP 16; O2SAT 95
[2023-06-02 20:06] LABS: Lactic Acid w/Reflex 4.2 mmol/L (0.4-2.0)
[2023-06-02] MEDS ORDERED: metroNIDAZOLE 500MG/100ML 100 ML IV ONE (20:15)
[2023-06-02] MEDS ORDERED: DEXTROSE (50%) 50ML SYRG IV PRN (20:30)
[2023-06-02] MEDS ORDERED: ONDANSETRON HCL 4 MG/2 ML VIAL IV PRN (20:30)
[2023-06-02] MEDS ORDERED: MORPHINE SULFATE INJ 2 MG/ml SYRG IV PRN (20:30)
[2023-06-02] MEDS ORDERED: NITROGLYCERIN 0.4 MG SL TAB SL PRN (20:30)
[2023-06-02] MEDS: SODIUM CHLORIDE 0.9% 1,000 ML IV SCH (21:53)
[2023-06-02] MEDS: metroNIDAZOLE 500MG/100ML 100 ML IV SCH (21:54)
[2023-06-02 23:20] LABS: COVID19 ANTIGEN SOFIA FIA NEGATIVE (NEGATIVE); Rapid Influenza A Negative (Negative); Rapid Influenza B Negative (Negative)
[2023-06-03] MEDS: ACCU-CHEK COMFORT CURVE STRIP VI SCH ×4 (00:22→18:24)
[2023-06-03] MEDS: InsuLIN REG 1unit/0.01ml Soln (100units/ml) SC SCH ×4 (00:25→18:25)
[2023-06-03 05:07] LABS: Basophils # (auto) 0 10 ^3/uL (0-0.2); Basophils % (auto) 0.1 % (0.0-2.0); Eosinophils # (auto) 0 10 ^3/uL (0-0.8); Hematocrit 35.6 % (36.0-46.0); Hemoglobin 11.8 g/dL (12.2-16.2); Lymphocytes # (auto) 1.2 10 ^3/uL (0.4-5.4); Mean Corpuscular Hemoglobin 28.8 pg (28.0-32.0); Mean Corpuscular Hgb Conc. 33.2 g/dL (32.0-36.0); Mean Corpuscular Volume 86.8 fL (80.0-100.0); Monocytes # (auto) 0.6 10 ^3/uL (0-1.3); Monocytes % (auto) 4.1 % (0.0-12.0); Neutrophils # (auto) 13.5 10 ^3/uL (1.6-8.6); Neutrophils % (auto) 87.8 % (37.0-80.0); Red Blood Cells 4.11 10^6/uL (4.0-5.20); White Blood Cell 15.4 10^3/uL (4.4-10.8)
[2023-06-03 05:19] LABS: Alanine Aminotransferase 132 U/L (7-40); Albumin 3.3 g/dL (3.2-4.8); Alkaline Phosphatase 113 U/L (46-116); Anion Gap 10 (5-15); Aspartate Aminotransferase 134 U/L (13-40); Blood Urea Nitrogen 20 mg/dL (9-23); Calcium 8.1 mg/dL (8.7-10.4); Carbon Dioxide 19 mmol/L (20-30); Chloride 109 mmol/L (98-107); Glucose 276 mg/dL (74-106); Sodium 138 mmol/L (136-145)
[2023-06-03 05:20] LABS: Bilirubin, Total 1.1 mg/dL (0.2-1.0); Total Protein 5.8 g/dL (5.7-8.2)
[2023-06-03] MEDS: SODIUM CHLORIDE 0.9% 1,000 ML IV SCH ×2 (05:56→23:18)
[2023-06-03] MEDS: metroNIDAZOLE 500MG/100ML 100 ML IV SCH ×3 (05:59→22:03)
[2023-06-03 07:40] VITALS: PULSE 90; RESP 26; O2SAT 92
[2023-06-03] MEDS ORDERED: cefTRIAXone 1GM/50ML D5W 50 ML IV SCH (09:00)
[2023-06-03] MEDS ORDERED: MORPHINE SULFATE INJ 2 MG/ml SYRG IV PRN (10:15)
[2023-06-03] MEDS ORDERED: MAGNESIUM SULFATE 1GM/100ML 100 ML IV ONE (12:00)
[2023-06-03 19:30] VITALS: PULSE 66; RESP 14; O2SAT 92
[2023-06-03] MEDS: MEROPENEM 1GM IVPB 100 ML IV SCH (23:26)
[2023-06-03] MEDS ORDERED: LORazepam 2MG/ML-1ML VIAL IV ONE (23:30)
[2023-06-04] MEDS: ACCU-CHEK COMFORT CURVE STRIP VI SCH ×5 (00:18→23:27)
[2023-06-04] MEDS: InsuLIN REG 1unit/0.01ml Soln (100units/ml) SC SCH ×5 (00:20→23:30)
[2023-06-04] MEDS: metroNIDAZOLE 500MG/100ML 100 ML IV SCH ×3 (06:09→22:00)
[2023-06-04] MEDS: MEROPENEM 1GM IVPB 100 ML IV SCH ×2 (10:03→22:00)
[2023-06-04] MEDS: SODIUM CHLORIDE 0.9% 1,000 ML IV SCH (12:44)
[2023-06-04 19:30] VITALS: O2SAT 98
[2023-06-04 20:00] VITALS: PULSE 76
[2023-06-04] MEDS ORDERED: LORazepam 2MG/ML-1ML VIAL IV PRN (21:45)
[2023-06-04 22:00] VITALS: BP 151/101; PULSE 78; RESP 18; TEMP 97.3; O2SAT 98
[2023-06-04] MEDS ORDERED: HALOPERIDOL LACTATE 5 MG/ML INJ VIAL IM PRN (22:15)
[2023-06-05] VITALS (7 sets, daily range): BP systolic 147–180; BP diastolic 59–83; PULSE 83–96; RESP 17–20; TEMP 96.5–98.2; O2SAT 93–98
[2023-06-05] MEDS: SODIUM CHLORIDE 0.9% 1,000 ML IV SCH ×2 (01:50→15:10)
[2023-06-05] MEDS: metroNIDAZOLE 500MG/100ML 100 ML IV SCH ×2 (06:09→13:13)
[2023-06-05] MEDS: ACCU-CHEK COMFORT CURVE STRIP VI SCH ×3 (06:09→17:38)
[2023-06-05] MEDS: InsuLIN REG 1unit/0.01ml Soln (100units/ml) SC SCH ×3 (06:18→17:39)
[2023-06-05] MEDS: MEROPENEM 1GM IVPB 100 ML IV SCH ×2 (09:22→21:57)
[2023-06-05] MEDS ORDERED: hydrALAZINE HCL 20 MG/ML VL IV PRN (12:45)
[2023-06-05] MEDS ORDERED: diphenhdrAMINE HCL 50 MG/1 ML VL IV PRN (12:45)
[2023-06-05 16:46] LABS: Urine Bacteria NONE SEEN /hpf (None Seen); Urine Blood 1+ /uL (Negative); Urine Clarity Clear (Clear); Urine Color STRAW (Yellow); Urine Protein, UAD 2+ (Negative); Urine Urobilinogen Normal (Negative); Urine WBC 54 /hpf (0 - 5)
[2023-06-05] MEDS ORDERED: LORazepam 0.5 MG TAB PO PRN (20:45)
[2023-06-05] MEDS ORDERED: MELATONIN 5 MG TAB PO ONE (22:00)
[2023-06-06] MEDS: ACCU-CHEK COMFORT CURVE STRIP VI SCH ×4 (00:21→17:50)
[2023-06-06] MEDS: SODIUM CHLORIDE 0.9% 1,000 ML IV SCH ×2 (04:30→17:50)
[2023-06-06] MEDS: InsuLIN REG 1unit/0.01ml Soln (100units/ml) SC SCH ×4 (05:59→17:51)
[2023-06-06 06:30] LABS: Basophils # (auto) 0.1 10 ^3/uL (0-0.2); Basophils % (auto) 0.8 % (0.0-2.0); Eosinophils # (auto) 0.2 10 ^3/uL (0-0.8); Eosinophils % (auto) 2.8 % (0.0-7.0); Hemoglobin 11.6 g/dL (12.2-16.2); Lymphocytes % (auto) 31.9 % (10.0-50.0); Mean Corpuscular Hemoglobin 28.8 pg (28.0-32.0); Mean Corpuscular Hgb Conc. 34.1 g/dL (32.0-36.0); Mean Corpuscular Volume 84.4 fL (80.0-100.0); Monocytes # (auto) 0.4 10 ^3/uL (0-1.3); Monocytes % (auto) 6.8 % (0.0-12.0); Neutrophils # (auto) 3.5 10 ^3/uL (1.6-8.6); Neutrophils % (auto) 57.7 % (37.0-80.0); Nucleated Red Blood Cells % 0.1 %; Red Blood Cells 4.03 10^6/uL (4.0-5.20); Red Cell Distribution Width 14.7 % (11.8-14.3); White Blood Cell 6.1 10^3/uL (4.4-10.8)
[2023-06-06 06:31] LABS: Chloride 108 mmol/L (98-107); Potassium 3.1 mmol/L (3.5-5.1); Sodium 141 mmol/L (136-145)
[2023-06-06 06:32] LABS: Anion Gap 8 (5-15); Carbon Dioxide 25 mmol/L (20-30)
[2023-06-06 06:33] LABS: Calcium 8.1 mg/dL (8.5-10.1)
[2023-06-06 06:37] LABS: BUN/Creatinine Ratio 15.3 (10.0-20.0); Blood Urea Nitrogen 9 mg/dL (9-23); Glucose 176 mg/dL (74-106)
[2023-06-06 08:00] VITALS: BP 139/82; PULSE 63; PULSE 75; RESP 18; TEMP 98; O2SAT 95
[2023-06-06] MEDS: MEROPENEM 1GM IVPB 100 ML IV SCH (09:35)
[2023-06-06] MEDS ORDERED: IOTHALAMATE MEGLUMINE INJ 250ML BOT UR ONE (09:36)
[2023-06-06 10:40] VITALS: BP 139/82; PULSE 75; RESP 18; TEMP 98; O2SAT 95
[2023-06-06 15:10] VITALS: BP 140/67; PULSE 67; RESP 18; TEMP 98.1; O2SAT 95
[2023-06-06] MEDS ORDERED: AMOX500T86 PO (15:21)
[2023-06-06 15:42] VITALS: BP 140/67; PULSE 75; RESP 18; TEMP 98; O2SAT 95
[2023-06-06] MEDS ORDERED: POTASSIUM CHL 20 Meq TABLET PO ONE (16:00)
== END 2023-06-06 19:40 | disposition home or self-care (01) | DRG 313 ==
LOC: ER 15:33 → TELE 20:48 → TELE-WESTW 06-04 18:31
PROVIDERS: ADMIT Internal Medicine; ATTEND Internal Medicine
DX: R07.89 Other chest pain (principal); N30.00 Acute cystitis without hematuria; K80.00 Calculus of gallbladder with acute cholecystitis without obstruction; R74.01 Elevation of levels of liver transaminase levels; E11.65 Type 2 diabetes mellitus with hyperglycemia; Z20.822 Contact with and (suspected) exposure to COVID-19; E86.0 Dehydration; F03.90 Unspecified dementia, unspecified severity, without behavioral disturbance, psychotic disturbance, mood disturbance, and anxiety; I10 Essential (primary) hypertension; Z86.73 Personal history of transient ischemic attack (TIA), and cerebral infarction without residual deficits; Z79.84 Long term (current) use of oral hypoglycemic drugs; Z87.440 Personal history of urinary (tract) infections; Z87.891 Personal history of nicotine dependence; Z90.710 Acquired absence of both cervix and uterus
CPT/HCPCS: 36415; 71045; 72193; 74176; 76705; 78226; 80048; 80053; 81001; 82962; 83036; 83605; 83690; 83735; 83880; 84443; 84484; 85025; 85610; 85730; 87040; 87077; 87081; 87086; 87186; 87426; 87804; 93005; 93971; 96361; 96365; 96366; 97110; 97116; 97163; 97530; 99291; G0378; J1815; J2185; J2543; J3490; Q0162